=== PATIENT | female | born 2000 | race Hispanic/Latino ===

== ENCOUNTER 2023-09-24 09:35 | Outpatient (CLI) | payer OTHER, SELFPAY ==
--- NOTE | ~2023-09-24 | US_ITS ---
EXAMINATION: US OB <=14 wk fetus w TV DATE: 09/24/2023 10:15 INDICATION: Gestational dating TECHNIQUE: Real-time transabdominal and transvaginal obstetric ultrasound. FINDINGS: No prior studies for comparison. The uterus measures 10.8 x 5.5 x 7.2 cm. There is an intrauterine gestational sac, with pole id entified. The crown rump length measures 1.54 cm, which correlates with a estimated gestational age of 8 weeks 0 days. heart tones are identified measuring 177 BPM. There is a small 1.8 cm left ovarian cyst. IMPRESSION: 1. SL IUP with an EGA of 8 weeks, 0 days (EDC by current ultrasound of 05/05/2024). Reviewed, dictated and finalized at location B. GE PUMPER IMPRESSION: 1. SL IUP with an EGA of 8 weeks, 0 days (EDC by current ultrasound of 05/05/20 24).
== END 2023-09-24 09:36 ==
PROVIDERS: PCP Student in an Organized Health Care Education/Training Program; Visit Provider Student in an Organized Health Care Education/Training Program
DX: N91.2 Amenorrhea, unspecified (principal)
CPT/HCPCS: 76801; 76817

== ENCOUNTER 2023-10-08 10:55 | Outpatient (CLI) | payer OTHER, SELFPAY ==
[2023-10-08 12:29] LABS: Basophils Percent Auto 0.3 % (0.2-1.2); Eosinophils Absolute Auto 0.1 K/mm3 (0-0.3); Eosinophils Percent Auto 1.3 % (0-4.4); Hematocrit 41.3 % (37.0-47.0); Hemoglobin 13.5 g/dL (12.0-15.0); Immature Granulocyte Absolute 0.04 K/mm3 (0.00-0.031); Immature Granulocyte Percent A 0.4 % (0-0.5); Lymphocytes Absolute Auto 2.71 K/mm3 (0.9-3.2); Lymphocytes Percent Auto 28.6 % (18.3-44.2); Mean Corpuscular HGB Conc 32.7 g/dl (32-36); Mean Corpuscular Hemoglobin 30.1 pg (26-34); Mean Corpuscular Volume 92.2 fl (80-100); Mean Platelet Volume 10.1 fl (7.4-10.4); Monocytes Absolute Auto 0.6 K/mm3 (0.1-0.6); Monocytes Percent Auto 6.4 % (2.6-8.5); Platelet Count Result 248 k/mm3 (150-375); Red Blood Count 4.48 M/mm3 (4.2-5.4); Red Cell Distribution Width 13.4 % (11.5-14.5); White Blood Count 9.5 K/mm3 (4.5-10.0)
[2023-10-08 12:39] LABS: Creatinine Urine 43.6 mg/dL; Total Protein Urine Random 10 mg/dL
[2023-10-08 12:49] LABS: Alanine Aminotransferase 26 U/L (6-35); Albumin Level 4.3 g/dL (3.5-5.1); Alkaline Phosphatase 55 U/L (38-126); Anion Gap 8 mmol/L (8-16); Aspartate Amino Transferase 21 U/L (14-36); Bilirubin,Total 0.3 mg/dL (0.2-1.3); Blood Urea Nitrogen 8 mg/dL (7-17); Calcium 9.7 mg/dL (8.4-10.2); Carbon Dioxide 26 mmol/L (22-30); Chloride 104 mmol/L (98-107); Estimated Glomerular Filt Rate > 60; Glucose 98 mg/dL (65-110); Glucose 1 Hour PP 50gm Dose 98 mg/dL; Potassium 3.6 mmol/L (3.4-5.0); Sodium 138 mmol/L (137-145); Uric Acid 4.2 mg/dL (2.5-7.5)
[2023-10-08 13:22] LABS: HIV 1/2 Ab P24 Ag Result Negative (Negative)
[2023-10-08 13:28] LABS: Hepatitis B Surface Antigen Negative (Negative); Rubella IgG Antibody 12.8 IU/ML
[2023-10-08 13:42] LABS: Rapid Plasma Reagin Non-Reactive (NonReactive)
[2023-10-19 17:02] LABS: CF Result NEGATIVE (NEGATIVE); Ethnicity NG; SMA 2.0 RISK VARIANT NOT DETECTED
[2023-10-25 14:53] LABS: SMA Results Received Yes
== END 2023-10-08 10:56 | disposition home or self-care (01) ==
LOC: ANHLAB 10:57
PROVIDERS: PCP Student in an Organized Health Care Education/Training Program; Visit Provider Student in an Organized Health Care Education/Training Program
DX: N94.89 Other specified conditions associated with female genital organs and menstrual cycle (principal); Z87.59 Personal history of other complications of pregnancy, childbirth and the puerperium; E66.9 Obesity, unspecified; N91.2 Amenorrhea, unspecified
CPT/HCPCS: 36415; 80053; 81050; 81220; 81329; 82570; 82947; 84156; 84550; 85025; 86592; 86644; 86703; 86747; 86762; 86787; 86850; 86900; 86901; 87086; 87340; G0432

== ENCOUNTER 2023-11-21 17:10 | Outpatient (CLI) | payer OTHER, MEDICAID, SELFPAY | END 2023-11-21 17:11 | disposition home or self-care (01) | LOC: ANHLAB 17:11 | PROVIDERS: PCP Student in an Organized Health Care Education/Training Program; Visit Provider Obstetrics & Gynecology | DX: R30.0 Dysuria (principal) | CPT/HCPCS: 87086; 87088 ==

== ENCOUNTER 2024-02-19 10:00 | Outpatient (CLI) | payer OTHER, SELFPAY ==
[2024-02-19 11:57] LABS: Basophils Percent Auto 0.1 % (0.2-1.2); Eosinophils Absolute Auto 0.1 K/mm3 (0-0.3); Eosinophils Percent Auto 0.6 % (0-4.4); Hematocrit 37.6 % (37.0-47.0); Hemoglobin 12.6 g/dL (12.0-15.0); Immature Granulocyte Absolute 0.09 K/mm3 (0.00-0.031); Immature Granulocyte Percent A 1.1 % (0-0.5); Lymphocytes Absolute Auto 1.56 K/mm3 (0.9-3.2); Lymphocytes Percent Auto 19.9 % (18.3-44.2); Mean Corpuscular HGB Conc 33.5 g/dl (32-36); Mean Corpuscular Hemoglobin 30.5 pg (26-34); Mean Platelet Volume 10.7 fl (7.4-10.4); Monocytes Absolute Auto 0.4 K/mm3 (0.1-0.6); Monocytes Percent Auto 4.7 % (2.6-8.5); Neutrophils Absolute Auto 5.8 K/mm3 (1.3-6.7); Neutrophils Percent Auto 73.6 % (45.5-73.1); Platelet Count Result 200 k/mm3 (150-375); Red Blood Count 4.13 M/mm3 (4.2-5.4); White Blood Count 7.8 K/mm3 (4.5-10.0)
[2024-02-19 12:11] LABS: Glucose 1 Hour PP 50gm Dose 138 mg/dL
[2024-02-19 12:53] LABS: HIV 1/2 Ab P24 Ag Result Negative (Negative)
[2024-02-19 13:39] LABS: Rapid Plasma Reagin Non-Reactive (NonReactive)
== END 2024-02-19 10:01 | disposition home or self-care (01) ==
LOC: ANHLAB 10:05
PROVIDERS: Visit Provider Obstetrics & Gynecology
DX: Z34.90 Encounter for supervision of normal pregnancy, unspecified, unspecified trimester (principal)
CPT/HCPCS: 36415; 82947; 85025; 86592; 86703; G0432

== ENCOUNTER 2024-02-22 07:04 | Outpatient (CLI) | payer OTHER, SELFPAY ==
[2024-02-22 07:39] LABS: Glucose Fasting Gestational 87 mg/dL (>/=95)
[2024-02-22 09:09] LABS: Glucose 1 Hour Gest 140 mg/dL (>/=180)
[2024-02-22 10:00] LABS: Glucose 2 Hour Gest 123 mg/dL (>/= 155)
[2024-02-22 11:39] LABS: Glucose 3 Hour Gest 107 mg/dL (>/=140)
== END 2024-02-22 07:05 | disposition home or self-care (01) ==
LOC: ANHLAB 07:06
PROVIDERS: Visit Provider Obstetrics & Gynecology
DX: R73.09 Other abnormal glucose (principal)
CPT/HCPCS: 36415; 82951; 82952

== ENCOUNTER 2024-04-26 18:33 | Inpatient (IN) | payer OTHER, SELFPAY ==
[2024-04-26 18:41] VITALS: TEMP 36.6
[2024-04-26 19:24] LABS: Basophils Percent Auto 0.2 % (0.2-1.2); Eosinophils Percent Auto 0.4 % (0-4.4); Hematocrit 40.2 % (37.0-47.0); Hemoglobin 13.9 g/dL (12.0-15.0); Immature Granulocyte Absolute 0.07 K/mm3 (0.00-0.031); Immature Granulocyte Percent A 0.7 % (0-0.5); Lymphocytes Percent Auto 25.3 % (18.3-44.2); Mean Corpuscular HGB Conc 34.6 g/dl (32-36); Mean Corpuscular Hemoglobin 30.5 pg (26-34); Mean Corpuscular Volume 88.2 fl (80-100); Mean Platelet Volume 10.9 fl (7.4-10.4); Monocytes Absolute Auto 0.7 K/mm3 (0.1-0.6); Monocytes Percent Auto 6.6 % (2.6-8.5); Neutrophils Absolute Auto 7.2 K/mm3 (1.3-6.7); Neutrophils Percent Auto 66.8 % (45.5-73.1); Platelet Count Result 207 k/mm3 (150-375); Red Blood Count 4.56 M/mm3 (4.2-5.4); Red Cell Distribution Width 13.8 % (11.5-14.5); White Blood Count 10.7 K/mm3 (4.5-10.0)
[2024-04-26 19:45] VITALS: BMI 39.2
[2024-04-26 20:02] VITALS: BP 138/75; PULSE 89
[2024-04-26 20:15] LABS: HIV 1/2 Ab P24 Ag Result Negative (Negative)
[2024-04-26 21:23] LABS: Rapid Plasma Reagin Non-Reactive (NonReactive)
[2024-04-26 21:29] VITALS: TEMP 37
[2024-04-26] MEDS: OXYTOCIN 30 UNITS/NS 500 ML 30 UNITS/500 ML BAG 999 UNITS IV CONT (23:03)
[2024-04-26 23:06] VITALS: BP 127/65; PULSE 83
[2024-04-26 23:31] VITALS: BP 118/62; PULSE 85
[2024-04-27] VITALS (8 sets, daily range): BP systolic 94–132; BP diastolic 53–80; PULSE 70–88; RESP 16–20; TEMP 35.9–37; O2SAT 98–100
[2024-04-27] MEDS: IBUPROFEN 600 MG TABLET PO ×2 (00:29→07:43)
[2024-04-27] MEDS: WITCH HAZEL 40 PADS 1 PAD TOPICAL (01:15)
[2024-04-27] MEDS: BENZOCAINE 20% AER SPR (*SP) 56 GM CAN 1 SPRAY TOPICAL (01:15)
--- NOTE | 2024-04-27 01:33 | OBPPTRN ---
Patient transferred to post room #287 via wheelchair. Support person- significant other present. Oriented to unit, room, information board, rooming in, admission packet and security measures. Patient verbalizes understanding.
[2024-04-27] MEDS: ACETAMINOPHEN 325 MG TABLET 650 MG PO (03:10)
[2024-04-27 05:17] LABS: Hematocrit 37.8 % (37.0-47.0); Hemoglobin 12.7 g/dL (12.0-15.0)
[2024-04-27] MEDS: LANOLIN (LANSINOH) 7.5 GM CREAM 1 APPLIC TOPICAL (07:42)
[2024-04-27] MEDS: MULTIVIT/MIN/PREN/FOL AC/IRON TABLET 1 TAB PO (07:43)
[2024-04-27] MEDS: DOCUSATE SODIUM 100 MG CAPSULE PO (07:43)
--- NOTE | 2024-04-27 22:14 | PM.IMHP ---
H&P: HPI History of Present Illness Date/Time: 04/27/24 22:14 Chief Complaint: Leaking of fluid Narrative: Patient is a 24 y/o at 38 5/7 weeks admitted for SROM clear. PNC uncomplicated. She was having irregular contractions. Confirmed SROM. Review of Systems Review of Systems: All systems reviewed & are unremarkable except as noted in HPI and below Constitutional: Constitutional: Reports no additional constitutional complaints and Denies headache(s) Eyes: Eyes: Denies spots in vision ENT: Reports system reviewed and no additional complaints, except as documented and Denies headache(s) Cardiovascular: Cardiovascular: Denies chest pain and Denies dyspnea Respiratory: Respiratory: Denies dyspnea Gastrointestinal: Gastrointestinal: Reports no additional gastrointestinal complaints Genitourinary: Genitourinary: Reports amenorrhea Musculoskeletal: Musculoskeletal: Reports no additional musculoskeletal complaints Integumentary/Breasts: Skin/Breast: Denies breast mass and Denies rash Neurologic: Denies headache(s) Psychiatric: Psychiatric: Reports no additional psychiatric complaints [facility] Past Medical History Medical History Encounter for breast augmentation 2020 Other plastic surgery for unacceptable cosmetic appearance lipo 360 - 2020 Family History Family History Other Unknown family medical history Social History Social History Smoking status: Never smoker Second hand tobacco smoke exposure: No Alcohol intake: never Substance use: never Do You Feel Safe in your Home?: Yes Lack of Transportation: No Lack of Food: Never True Current Housing: I Have Housing Concerned About Future Housing: No Difficulty Paying Gas/Electric Bills: No Difficulty Paying for Meds: No Currently Unemployed: No Education: Decline to Answer Difficulty w/ Childcare or Family Care: No Living arrangements: with family Occupation/Education: occupation Additional occupation/education comments: [employer] Gender identity (if verbalized by the patient): Female Sexual Orientation (if Verbalized by the Patient): Straight or Heterosexual Spiritual care concerns: No Meds Home Medications and Allergies Home Medications Medication Instructions Recorded Confirmed Type ondansetron 4 mg disintegrating 4 mg PO Q8H 30 days #90 tabs 10/30/23 04/23/24 Rx tablet aspirin 81 mg tablet,delayed 162 mg PO DAILY 90 days #180 tabs 11/21/23 04/23/24 Rx release (Adult Aspirin Regimen) vits no.126-ferrous fum 1 tablet PO DAILY 02/26/24 04/23/24 History 28 mg iron-folic acid 800 mcg tablet (Classic ) Allergies Allergy/AdvReac Type Severity Reaction Status Date / Time No Known Allergies Allergy Verified 04/23/24 09:46 Vital Signs Vital Signs - 24 hr 04/26/24 23:06 04/26/24 23:31 04/27/24 00:00 Temperature Pulse Rate 83 85 70 Respiratory Rate Blood Pressure 127/65 118/62 110/77 Pulse Oximetry 04/27/24 00:31 04/27/24 00:50 04/27/24 01:48 Temperature 98.6 F 97.8 F Pulse Rate 70 79 Respiratory Rate 18 Blood Pressure 94/69 L 127/58 L Pulse Oximetry 98 04/27/24 05:15 04/27/24 07:55 04/27/24 11:54 Temperature 96.7 F L 97.8 F 98.1 F Pulse Rate 76 88 84 Respiratory Rate 18 16 20 Blood Pressure 106/66 111/53 L 132/80 Pulse Oximetry 98 100 98 Exam Const: General: no acute distress Eyes: General: appearance normal, both eyes and all related structures Resp: Effort & Inspection: normal respiratory effort Cardio: Rate: regular rate GI: Other: Gravid no fundal tenderness no right upper quadrant pain Skin: General skin exam: no rashes or lesions noted Neuro: Cognition (Neuro): normal cognition Extrem: General: normal to inspection
--- NOTE | 2024-04-27 22:19 | PM.OBPRVD ---
OB - Vaginal Delivery Note Procedure Delivery date: 04/26/24 Induction method: None Delivery monitor: External FHT Route of delivery: Episiotomy description: None Laceration Description: None Specimen: No Quantitative Blood Loss (ml): 150 Anesthesia type: None Complications: No immediate complications Narrative: She was admitted for SROM. She did get pitocin augmentation. She delivered a male infant over intact perineum. Nose and mouth suctioned at perineum with bulb. Cord doubly clamped and cut once apulsatile. Cord gases and cord blood obtained. No lacerations. Baby Date of : 04/26/24 Time of : 22:57 Gestational Age by Date: 38 gender: Male Weight (pounds): 7 Weight (ounces): 10 presentation: vertex position: Right Occiput Anterior Placenta delivery description: Spontaneous Cord Vessel Description: 3 Vessels and Clamped/Cut score one minute: 9 score five minutes: 9
--- NOTE | 2024-04-27 22:28 | PM.OBPNVD ---
OB - PN: Subj Subjective Date/time seen: 04/27/24 22:28 Patient comments: pain well controlled, tolerating diet and other (Decreasing lochia.) baby status: doing well and nursing well [place] feeding status: exclusively breast feeding OB - PN: Obj Data Labs 04/27/24 04:15 Labs: Laboratory Results - last 24 hr 04/27/24 04:15 Hgb 12.7 Hct 37.8 OB - PN A/P Assessment and Plan (1) Vaginal delivery: Code(s): O80 - Encounter for full-term uncomplicated delivery Status: Acute Assessment and Plan: 1. day 1. Doing well. Routine care. Plan day: 1 Plan: routine care Comments: Patient doing well. Asymptomatic anemia. Continue routine care. Time Spent With Patient Time: Total time spent is greater than 50% in coordination of care (as documented) at patient's floor/unit and/or counseling patient: Review of Systems Review of Systems: All systems reviewed & are unremarkable except as noted in HPI and below Constitutional: Constitutional: Reports no additional constitutional complaints Cardiovascular: Cardiovascular: Denies dyspnea Respiratory: Respiratory: Denies dyspnea Gastrointestinal: Gastrointestinal: Reports no additional gastrointestinal complaints and Denies abdominal pain Genitourinary: Genitourinary: Reports no additional female genitourinary complaints Exam Const: General: no acute distress, alert and awake Resp: Effort & Inspection: normal respiratory effort GI: GI Palp: No Tenderness to palpation present (GI) Other: Fundus nontender, below umbilicus Extrem: General: normal to inspection and no calf tenderness Psych: Appearance: grossly normal Affect: normal affect Other: Abd: fundus firm below umbilicus, nontender Ext: nontender
[2024-04-28] MEDS: IBUPROFEN 600 MG TABLET PO (03:48)
[2024-04-28] MEDS: ACETAMINOPHEN 325 MG TABLET 650 MG PO (03:48)
[2024-04-28] MEDS: MULTIVIT/MIN/PREN/FOL AC/IRON TABLET 1 TAB PO (07:04)
[2024-04-28 07:25] VITALS: BP 114/65; PULSE 87; RESP 16; TEMP 36.5; O2SAT 100
--- NOTE | 2024-04-28 07:30 | PC.NURSE ---
Insurance Breast pump given yesterday evening per mother request, she wished to not put baby to breast and only pump and bottle now. This morning RN reiterated instructions on cleaning, care, usage, that there should be no pain, pumping schedule for milk production, collection, and storage of human milk. Patient was assessed for correct placement, flange size, to pump for comfort and nipple stretching/stimulation for adequate milk production every 3 hours (8 times in 24 hours) 1-2 times at night. Parents are encouraged to record the pumping schedule on the feeding sheet.?Mother voiced understanding of the education shared along with mom/baby guide and the pump measurement, flange fit handout for additional resource information. Reported to the Primary RN.
--- NOTE | 2024-04-28 07:56 | PM.OBDSVD ---
DS: Admitting Diagnosis Discharge Date 04/28/2024 Admitting Diagnosis DS: Discharge Diagnosis Discharge Diagnosis (1) , delivered: Code(s): O80 - Encounter for full-term uncomplicated delivery Status: Acute OB - DS: Summary OB Procedures : None OB Procedures Intrapartum: Spontaneous Vag Delivery OB Procedures: : None Peripartum Data Laceration Description: None Episiotomy description: None Time Spent with Patient Time attestation: Total time spent providing and/or coordinating discharge services: Discharge Plan Discharge Discharging Clinician: Chaim Wilson Patient Disposition: Home, Self-Care Activity: as tolerated Diet: as tolerated Patient Instructions: Antibiotic Form Stand Alone Forms: General Discharge Information Follow-up/Referrals: Chaim Wilson MD [Physician] - 3 Weeks Discharge Medications: New ibuprofen 600 mg Tablet 600 mg PO Q6H PRN (Reason: Cramping) Qty: 20 0RF Continued Classic 28 mg iron- 800 mcg tablet 1 tablet PO DAILY ondansetron 4 mg tablet,disintegrating 4 mg PO Q8H 30 Days Qty: 90 2RF Discontinued aspirin [Adult Aspirin Regimen] 81 mg tablet,delayed release (DR/EC) 162 mg PO DAILY 90 Days Qty: 180 4RF Date of admission: 04/26/24 18:33 Primary Care Provider: MARYLIN,Healthcare Admitting Provider: Chaim Wilson Attending physician on admission: Chaim Wilson Condition: Stable
[2024-04-28] MEDS: TETANUS,DIPHTHERIA,AC PERTUSSIS ADULT (0.5 ML) BOOSTRIX IM (11:33)
[2024-04-29 10:42] VITALS: BP 129/89; PULSE 80; RESP 18; TEMP 36.8; O2SAT 100
== END 2024-04-28 12:46 | disposition home or self-care (01) | DRG 560 ==
LOC: ANHLDR 23:58 → ANHOB2 04-27 01:49
PROVIDERS: Admitting Provider Obstetrics & Gynecology; Visit Provider Obstetrics & Gynecology
DX: O80 Encounter for full-term uncomplicated delivery (principal); Z37.0 Single live birth; Z3A.38 38 weeks gestation of pregnancy
CPT/HCPCS: 36415; 85014; 85018; 85025; 86592; 86703; 86850; 86900; 86901; 90715; A9270; G0432; J2590

== ENCOUNTER 2025-03-24 09:51 | Outpatient (CLI) | payer OTHER, SELFPAY ==
--- OUTSIDE RECORDS SUMMARY | 2025-03-24 09:58 | XMS_ITS | Clinical Summary ---
Author Organization [facility] Address [address] [place] [address] Care Team Providers Care Drum Worker Name Role Phone Unavailable Primary Care Provider Unavailabl e Source Comments [facility],non-owned Affiliates and Associated Physician Practices is amultiple site organization consisting of ambulatory clinics and hospital sitesin [place] and [place]. This disclosure is being madepursuant to the Care Everywhere program and may not contain all information available regarding this patient. Last updated 18.[facility] Allergies No known active allergies Medications * Be aware that medications may not be up to date on this document. Alwaysverify current medications with the patient. Vit-Fe Fumarate-FA ( VITAMIN PO) Take 1 Tab by mouth once daily Active docusate sodium (COLACE) 100 MG capsule Take 1 Cap by mouth 2 times daily 60 Cap 2 08/03/2016 Active ferrous sulfate 325 (65 FE) MG tablet Take 1 Tab by mouth 2 times daily with morning and evening meal 60 Tab 08/03/2016 Active polyethylene glycol 3350 (MIRALAX) packet Take by mouth once daily 25 Packet 1 08/03/2016 Active Active Problems Problem Noted Date Diagnosed Date Evaluate anatomy not seen on prior sonogram 07/05 Edema during in third trimester 2015 Encounter for ultrasound to check growth 1 Supervision of high-risk of young prim igravida 06/01/2016 Overview (07/13/2016): PNL: O+/I/-/- Ab: Negative GCT: 101 HIV: NR GBS: neg Datinw US not c/w LMP H/H/Plt: 11.3/34.6/224 Hgb Elec: Neg UDS: QS: CF: Neg Pap: N/A Gc/Chl: Neg/Pos DAMIAN: 05/26 Neg/Neg UCx: No growth Breast/Bottle: Family Planning: Chlamydia infection during , antepartum 06/01/2016 Overview (06/01/2016): [place]; DAMIAN Neg on 05/26/16 Depression screen 06/01/2016 Overview (06/01/2016): EPDS score: Gestational proteinuria 06/01/2016 Overview (06/01/2016): With swelling of face and lower extremity edema and normal BP 24 hr urine protein: 467 on 05/26/16 Labs: WNL Threatened premature labor Vaginal bleeding in Immunizations Immunization Administration Dates Next Due INFLUENZA VACCINE, QUADR. (F LUZONE; FLULAVAL; FLUARIX; AFLURIA QUADRIVALENT; 6MO+), 0.5 ML (IIV4) 06/12/2016 TDAP (7yrs+) 08/02/2016 Family History Medical History Relation Name Comments Hypertension Maternal Grandfather Relation Name Status Comments Maternal Grandfather Social History Tobacco Use Types Packs/Day Years Used Date Smoking Tobacco: Never Tobacco Cessation:Counseling Given: No Alcohol Use Standard Drinks/Week Comments No 0 (1 standard drink = 0.6 oz pur e alcohol) Comments No Sex and Gender Information Value Date Recorded Sex Assigned at Not on file Legal Sex Female 9:00 AM CDT Gender Identity Not on file Sexual Orientation Not on file 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 Not on file Not on file Not on file Last Filed Vital Signs Vital Sign Reading Time Taken Comments Blood Pressure 106/70 09/22/2016 1:58 PM [employer] Pulse 54 09/14/2016 10:10 AM [employer] Temperature 36.6 C (97.9 F) 08/03/2016 7:55 AM [employer] Respiratory Rate 18 09/14/2016 10:10 AM [employer] Oxygen Saturation - - Inhaled Oxygen Concentration - - Weight 68 kg (150 lb) 09/22/2016 1:58 PM [employer] Height 152.4 cm (5') 09/22/2016 1:58 PM [employer] Body Mass Index 29.29 09/22/2016 1:58 PM [employer] Plan of Treatment Health Maintenance Due Date Last Done Comments HIV SCREENING 2013 HEPATITIS C SCREENING 12/31/2015 HEPATITIS B VACCINE (1 of 3 - 19+ 3-dose series) 2017 COVID-19 VACCINE ( - 2023-2 5 season) 2024 DEPRESSION SCREENING 09/03/2024 HPV VACCINE (1 - 3-dose SCDM series) 2025 INFLUENZA VACCINE (#1) 2025 06/12/2016 DTAP/TDAP/TD VACCINES (2 - T d or Tdap) 08/02/2026 08/02/2016 ZOSTER VACCINE (1 of 2) 01/05/2048 HIB VACCINE Aged Out No longer eligi ble based on patient's age to complete this topic MENINGOCOCCAL (Group B) VACC INE SHARED DECISION-MAKING Aged Out No longer eligibl e based on patient's age to complete this topic MENINGOCOCCAL GROUPS A/C/Y/W VACCINE Aged Out No longer eligible b ased on patient's age to complete this topic PNEUMOCOCCAL VACCINE Aged Out No long er eligible based on patient's age to complete this topic Insurance [facility] Advance Directives * Full Code (Latest Code Status on File) Date Activated Date Inactivated Comments 08/01/2016 12:54 PM 08/03/2016 2:56 PM * Full Code Date Activated Date Inactivated Comments 07/06/2016 9:55 PM 07/06/2016 11:58 PM
--- OUTSIDE RECORDS SUMMARY | 2025-03-24 09:58 | XMS_ITS | Encounter Summary ---
Author Organization [facility] Address [address] [place] [address] Care Team Providers Care Other Sales Support Worker Name Role Phone Unavailable Primary Care Provider Unavailabl e Encounter Details Date Type Department Care Team (Late st Contact Info) Description 08/10/2016 [facility] Outpatient Visit [facility]UATION [facility] 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 Answer Date of Assessment Author No 08/01/2016 1:33 PM Jessica Cardenas RN * Is person blind or have serious difficulty seeing? Answer Date of Assessment Author No 08/01/2016 1:33 PM Jessica Cardenas RN * Does person have serious difficulty walking/climbing stairs? Answer Date of Assessment Author No 08/01/2016 1:33 PM Jessica Cardenas RN * Does person have difficulty dressing/bathing? Answer Date of Assessment Author No 08/01/2016 1:33 PM Jessica Cardenas RN * Does person have difficulty doing errands alone? Answer Date of Assessment Author No 08/01/2016 1:33 PM Jessica Cardenas RN documented as of this encounter Mental Status * Does person have difficulty concentrating/remembering/making decisions? Answer Entry Date Author No 08/01/2016 1:33 PM Jessica Cardenas RN documented in this encounter Plan of Treatment Not on file documented as of this encounter Visit Diagnoses Not on filedocumented in this encounter
[2025-03-24 11:17] LABS: Hematocrit 40.5 % (37.0-47.0); Hemoglobin 13.3 g/dL (12.0-15.0); Immature Granulocyte Percent A 0.5 % (0-0.5); Lymphocytes Absolute Auto 2.72 K/mm3 (0.9-3.2); Mean Corpuscular HGB Conc 32.8 g/dl (32-36); Mean Corpuscular Hemoglobin 29.4 pg (26-34); Mean Corpuscular Volume 89.6 fl (80-100); Nucleated Red Blood Cells Absolute Auto 0.000 K/mm3 (0.0-0.012); Nucleated Red Blood Cells Perc 0.0 % (0.0-0.2); Platelet Count Result 235 k/mm3 (150-375); Red Blood Count 4.52 M/mm3 (4.2-5.4); White Blood Count 9.3 K/mm3 (4.5-10.0)
[2025-03-24 11:43] LABS: Glucose 1 Hour PP 50gm Dose 85 mg/dL
[2025-03-24 12:12] LABS: Syphilis IgG/IgM Antibody Non-Reactive (Nonreactive)
[2025-03-24 12:15] LABS: Hepatitis B Surface Antigen Negative (Negative)
[2025-03-24 12:24] LABS: HIV 1/2 Ab P24 Ag Result Negative (Negative)
[2025-03-24 12:55] LABS: Beta HCG Quantitative 71086.00 mIU/ML
[2025-03-25 07:09] LABS: Cytomegalovirus (CMV) Ab, IgG 2.60 U/mL (0.00-0.59)
[2025-03-25 15:09] LABS: Varicella-Zoster Ab, IgG Reactive (Non Reactive); Varicella-Zoster Ab, IgM <0.91 index (0.00-0.90)
[2025-03-27 13:08] LABS: Parvovirus B19, IgG 4.0 index (0.0-0.8); Parvovirus B19, IgM 0.2 index (0.0-0.8)
== END 2025-03-24 09:52 | disposition home or self-care (01) ==
LOC: ANHLAB 09:52
PROVIDERS: Visit Provider Obstetrics & Gynecology
DX: N91.2 Amenorrhea, unspecified (principal)
CPT/HCPCS: 36415; 82947; 84702; 85025; 86593; 86644; 86703; 86747; 86762; 86787; 86850; 86900; 86901; 87086; 87340; G0432